=== PATIENT | female | born 1955 | race Caucasian/White ===

== ENCOUNTER → 2016-07-02 | Outpatient (CLI) | payer MEDICARE, BC ==
[~2016-07-02] MED LIST: DERMACORT1 GM EXT; DIPHENHIST25 MG PO; DITROPAN5 MG PO; EFFEXOR XR150 MG PO; FLEXERIL10 MG PO; GABAPENTIN300 MG PO; GENTLE LAXATIVE10 MG PR; HYDROCODON-ACE1 EAC5 PO; LINZESS145 MCG PO; MILK OF MAGNESIA PO; MIRALAX17 GM PO; PERCOCET 10/3251 TAB PO; SENEXON-S TABL1 EACH PO; TRAZODONE HCL100 MG PO; TYL325 PO; VENLAFAXINE HC150 M1 PO
--- NOTE | ~2016-07-02 | EKG ---
PATIENT: ANA LAURA CRUZ UNIT #: [id number] Ventricular Rate: 80 BPM Atrial Rate: 80 BPM P-R Interval: 164 ms QRS Duration: 86 ms Q-T Interval: 382 ms QTC Calculation(Bezet): 440 ms P Ottawa: 39 degrees Calculated R [place]: 20 degrees Calculated T [place]: 39 degrees Diagnosis Line: Normal sinus rhythm Diagnosis Line: Normal ECG Diagnosis Line: No previous ECGs available Diagnosis Line: Confirmed by SUSANA DIAS MD ([id number]) on 07/03/2016 Diagnosis Line: 6:18:36 PM INTERPRETING MD: ARUN DELANEY
--- NOTE | ~2016-07-02 | CR63 ---
[facility] A Service of [facility] RADIOLOGY TEXT RESULTS PATIENT: ANA LAURA CRUZ LOCATION: [facility] : 59 UNIT #: [id number] AGE: [address]: Gavin Galeano MD SEX: F ORDER DR: [id number] [facility]. [place], [place] [address] [id number] O MR#: [id number] Acc #: [id number] NAME: ANA LAURA CRUZ : 1955 SEX: F STUDY DATE/TIME: 07/02/2016 11:41 UNIT: [facility] ROOM: STUDY DESCRIPTION: CR Chest 2 View Attending Physician: Gavin Galeano M.D. Referring Physician: Gavin Galeano M.D. Ordering Physician: Gavin Galeano M.D. Primary Care Physician: Isiah Felix Jr., M.D. MEDICAL IMAGING REPORT This report is preliminary unless electronic signature is present EXAM Chest PA and lateral, 07/02/2016. COMPARISON STUDIES None HISTORY Preop clearance for right total knee arthroplasty. TECHNIQUE PA and lateral views are obtained. FINDINGS The heart size in the patient is normal. The vascular pattern is normal. Lungs show some scarring in the right base. They are otherwise clear. No pleural fluid is seen. CONCLUSION Right basilar scarring. No acute process suspected. Dictated by... David Lema M.D. THIS IS AN ELECTRONICALLY VERIFIED REPORT David Lema M.D. at 07/04/2016 4:46 PM CHEO/marcia TD: 07/02/2016 17:27 JOB #: [id number] MEDICAL IMAGING REPORT [facility] A Service of [facility] RADIOLOGY TEXT RESULTS PATIENT: ANA LAURA CRUZ LOCATION: [facility] : 59 UNIT #: [id number] AGE: [address]: Gavin Galeano MD SEX: F ORDER DR: COPY
--- NOTE | ~2016-07-02 | CO ---
Unit #: [id number] #: [id number] Patient: ANA LAURA CRUZ [id number] [address] [place], [place] [address] [id number] O MR#: [id number] NAME: ANA LAURA CRUZ ROOM: Age: 60 Sex: F Admission Date: 07/02/2016 : 1955 Attending Physician: Gavin Galeano M.D. Primary Care Physician: Isiah Felix Jr., M.D. Consultation Date: 07/02/2016 CONSULTATION REPORT REASON FOR CONSULTATION Preprocedural medical evaluation prior to revision right total knee arthroplasty scheduled by Dr. Galeano for flexion instability of the right knee. HISTORY OF PRESENT ILLNESS The patient is a 60-year-old female who presents for preprocedural screening for the reasons indicated above. She has had a prior right total knee revision and complains of pain as well as very significant crepitus and noise in the right knee joint. She has been evaluated by Dr. Galeano and scheduled for the above referenced procedure. She denies chest, arm, neck, back, jaw pressure or pain. She denies dyspnea on exertion, shortness of air, PND, orthopnea, sleep apnea. She denies a history of myocardial infarction, congestive heart failure, CVA, TIA, diabetes and kidney disease. She has no complaints other than that associated with her right knee at the time of this interview. PAST MEDICAL HISTORY 1. Osteoarthritis. 2. Obesity, BMI 36. 3. E-cigarette use. 4. History of paralyzed left vocal cord. 5. History of melanoma of right knee. 6. Overactive bladder. 7. Constipation. 8. Depression. 9. Dysphagia, status post lap band procedure. PAST SURGICAL HISTORY 1. Left vocal cord surgery. 2. Total right knee x2 with one of those surgeries revision. 3. Cholecystectomy. 4. Tonsillectomy. 5. Appendectomy for ruptured appendix. 6. Right fallopian tube excision with part of intestines and then left fallopian tube removed with complete hysterectomy. 7. Surgery on the left (1) x2. 8. The patient has had a colonoscopy. Please note - patient states that she is "hard to get under anesthesia." ALLERGIES Denies latex allergy. Medication allergies - nickel, Z-Jay (she has shortness of breath and rash) and catgut sutures. Unit #: [id number] #: [id number] Patient: ANA LAURA CRUZ CURRENT MEDICATIONS 1. Ditropan 5 mg p.o. t.i.d. 2. Flexeril 10 mg p.o. t.i.d. 3. Trazodone HCl 100 mg p.o. at bedtime. 4. Hydrocodone/acet 10/325 mg tab, one p.o. q.6 hours p.r.n. 5. Linzess 145 mcg p.o. daily before breakfast. 6. Venlafaxine HCl 150 mg p.o. daily. 7. Gabapentin 300 mg p.o. t.i.d. SOCIAL HISTORY E-cigarette use. Rarely drinks alcohol. Denies illicit drug use. FAMILY HISTORY Cancer. REVIEW OF SYSTEMS Ten point review of systems is conducted and negative except as indicated under history of present illness above. PHYSICAL EXAMINATION GENERAL: 60-year-old female awake, alert, in no acute distress. VITAL SIGNS: Temperature 97.3, heart rate 78, respiratory rate 16, blood pressure 124/74. Oxygen saturation 97% on room air. HEENT: Atraumatic, normocephalic. Sclerae anicteric. No discharge from eyes, ears or nares. LYMPHS: No preauricular, postauricular, tonsillary, submental, anterior, posterior, cervical, supra or infraclavicular adenopathy. ENDOCRINE: No thyromegaly, thyroid nodules or tenderness. RESPIRATORY: Clear to auscultation in all ceballos bilaterally without wheezes, rhonchi or rales. CARDIOVASCULAR: S1, S2. Regular rate and rhythm without murmur or rub. GI: Bowel sounds positive x4 quadrants. Soft, nontender, nondistended. EXTREMITIES: No edema, cyanosis or clubbing. Right knee joint larger than left without erythema, streaking. MUSCULOSKELETAL: Strength 5/5 in lower extremities bilaterally, flexion and extension. NEURO: Alert and oriented x3. Speech clear and appropriate. Follows commands. DIAGNOSTIC STUDIES LABORATORY: WBC 7.6, hemoglobin 12.3, hematocrit 37.5, platelet count 179, sed rate 19, sodium 139, potassium 4.0, chloride 106, CO2 26, glucose 88, BUN 14, creatinine 0.7, calcium 9.2, AST 18, ALT 18, alkaline phos. 86, bili total 0.5, total protein 6.7, albumin 4.1. UA negative with neither microscopic nor culture indicated. PT 10.3, INR 1.0. Blood type pending at this time. IMAGIN view chest x-ray report pending at this time. CARDIOVASCULAR: 12-lead EKG preliminary tracing - normal sinus rhythm, normal ECG. Confirmed tracing pending at this time. IMPRESSION Unit #: [id number] #: [id number] Patient: ANA LAURA CRUZ The patient is a 60-year-old female who presents to preprocedural screening for: 1. Preoperative medical evaluation prior to second revision right total replacement: The patient's Levin Revised Cardiac Risk Index is equal to 0.4%. This represents the patient's risk of cardiac , fatal or nonfatal myocardial infarction, cardiopulmonary arrest, arrhythmia and/or pulmonary edema. This has been discussed in detail with the patient. She wishes to proceed with surgery as scheduled at this time. 2. Obesity, body mass index 36. 3. E-cigarette use. 4. History of paralyzed left vocal cord. 5. History of melanoma of the right knee. 6. Osteoarthritis. 7. Overactive bladder. 8. Constipation. 9. Depression. 10. Status post lap band with history of dysphagia. The patient is asymptomatic today. Thank you for allowing us to participate in the care of this patient. Will gladly follow her for postop medical management pending order of Dr. Galeano. Dictated by... Franny Garcia A.P.R.N. for Marni Wagner M.D. ORIANA/césar TD: 07/03/2016 09:25 JOB #: [id number] CONSULTATION REPORT X Franny Garcia PHYSICIAN/ALLERGY/IMMUNOLOGY X CONSULTATION REPORT
[2016-07-02 12:12] LABS: HEMATOCRIT 37.5 % (35.0-45.0); HEMOGLOBIN 12.3 gm/dL (12.0-16.0); MEAN CELL VOLUME 86.1 FL (83-96); MEAN CORPUSCULAR HEMOGLOBIN 28.3 PG (28-34); MEAN CORPUSCULAR HGB CONC 32.9 g/dL (30-36); MEAN PLATELET VOLUME 7.4 FL (6.5-11.5); RED BLOOD COUNT 4.35 X10e (3.90-5.30); RED CELL DISTRIBUTION WIDTH 13.7 % (11.0-15.5); WHITE BLOOD COUNT 7.6 X10e3 (4.0-10.5)
[2016-07-02 12:17] LABS: URINE APPEARANCE CLEAR; URINE BILIRUBIN NEG (NEG); URINE BLOOD NEG (NEG); URINE COLOR DK YELLOW; URINE GLUCOSE NEG (NEG); URINE KETONE NEG (NEG); URINE LEUKOCYTE ESTERASE NEG (NEG); URINE NITRATE NEG (NEG); URINE PROTEIN NEG (NEG); URINE SPECIFIC GRAVITY 1.034 (1.003-1.035)
[2016-07-02 12:27] LABS: PROTHROMBIN TIME (PATIENT) 10.3 SECONDS (9.6-11.5)
[2016-07-02 12:34] LABS: URINE SOURCE CLEAN CATCH
[2016-07-02 12:35] LABS: CULTURE INDICATED? NO
[2016-07-02 13:10] LABS: ALBUMIN SERUM 4.1 g/dL (3.5-5.0); ALKALINE PHOSPHATASE 86 U/L (32-92); ALT (SGPT) 18 U/L (10-40); AST (SGOT) 18 U/L (10-42); BILIRUBIN,TOTAL 0.5 mg/dL (0.2-2.0); BLOOD UREA NITROGEN 14 mg/dL (9-23); CALCIUM SERUM 9.2 mg/dL (8.4-10.2); CARBON DIOXIDE 26 mmol/L (22-31); CHLORIDE 106 mmol/L (100-111); CREATININE SERUM 0.7 mg/dL (0.6-1.4); GLOM FILT RATE Estimated ABOVE60 mL/min (>60); GLUCOSE FASTING 88 mg/dL (70-110); PROTEIN TOTAL SERUM 6.7 g/dL (6.0-8.3); SODIUM 139 mmol/L (135-145)
== END | disposition home or self-care (01) ==
LOC: CAMB 09:56
PROVIDERS: Orthopaedic Surgery
DX: Z01.818 Encounter for other preprocedural examination (principal); T84.022A Instability of internal right knee prosthesis, initial encounter; J98.4 Other disorders of lung; Z85.9 Personal history of malignant neoplasm, unspecified; Z79.01 Long term (current) use of anticoagulants
CPT/HCPCS: 36415; 71020; 80053; 81003; 85027; 85610; 85652; 87070; 93005

== ENCOUNTER 2016-07-16 06:18 | Inpatient (IN) | payer MEDICARE, BC ==
--- NOTE | ~2016-07-16 | OR ---
Unit #: [id number] #: [id number] Patient: ANA LAURA CRUZ [id number] [address] [place], [place] [address] [id number] I MR#: [id number] NAME: ANA LAURA CRUZ ROOM: [facility] Date of Procedure: 07/16/2016 Admission Date: 07/16/2016 Surgeon: Gavin Galeano M.D. : 1955 Attending Physician: Gavin Galeano M.D. Primary Care Physician: Gavin Galeano M.D. OPERATIVE REPORT PREOPERATIVE DIAGNOSIS Instability of the right total knee. POSTOPERATIVE DIAGNOSIS Instability of the right total knee. PROCEDURE PERFORMED Revision of the insert of the right total knee. INDICATIONS FOR PROCEDURE The patient had a revision total knee done and still has feelings of instability and the knee swells and subsequent workup is negative and she is brought to the hospital for revision right total knee. DESCRIPTION OF PROCEDURE The patient was brought to the holding room, given appropriate IV antibiotics and after this was done, the patient was brought back to the operating room and given general anesthetic. The tourniquet was placed around the right leg. The right leg was prepped and draped. The previous skin incision was opened, subcutaneous dissected away and a medial arthrotomy was performed. There was a fair amount of clear fluid encountered. This was cultured and the patella was slid to the side. Scar tissue debrided. We then removed the polyethylene from the previous components which is a 12 mm thick insert (1) Dequan CCK femoral component with a 71 mm tibial component. The patient then had the femur and tibia were inspected and they were not loose. Again, we tired with the new CCK inserts, first with a 14 and then with 16. We found that the 16 still allowed full extension and had excellent stability in both extension and flexion. So, a 16 mm constrained insert for the CCK femoral component was inserted into the 71 mm tibia. The patient had the knee irrigated out. The tourniquet was released. Hemostasis was obtained. The periarticular injection was used. The wound was then irrigated with Betadine and bacitracin and then closed using 0 Ethibond in the arthrotomy, 0 and 2-0 Vicryl in the subcutaneous, and then we used the Prineo closure in the skin because of her allergy to nickel and tape. grooming assistant, Nathaniel Dorado and Yuliya Root were present throughout the entire case. Blood loss about 100 to 150 mL. Dictated by... Gavin Galeano M.D. Unit #: [id number] #: [id number] Patient: ANA LAURA CRUZ JAK/olivia TD: 07/17/2016 07:51 JOB #: [id number] OPERATIVE REPORT X Gavin Galeano MD PROCEDURE OPERATIVE NOTE
--- NOTE | ~2016-07-16 | DS ---
Unit #: [id number] #: [id number] Patient: ANA LAURA CRUZ [id number] [address] [place], [place] [address] [id number] I MR#: [id number] NAME: ANA LAURA CRUZ ROOM: 451 Age: 60 Sex: F Admission Date: 07/16/2016 : 1955 Discharge Date: 07/18/2016 Attending Physician: Gavin Galeano M.D. Primary Care Physician: Gavin Galeano M.D. DISCHARGE SUMMARY ADMITTING DIAGNOSIS Instability, right total knee. DISCHARGE DIAGNOSIS Instability, right total knee. PROCEDURE IN HOSPITAL Revision of polyethylene insert, right knee. HOSPITAL COURSE The patient was admitted on July 16, taken to the operating room where she underwent the above procedure. Postoperatively, she has done well. She has been up ambulating. She is independent with her walker. It is felt she can be discharged to [facility] for further rehab and strengthening. Her INR today is 1.6. She will be discharged on 7.5 mg of Coumadin daily and then we will see her back in the office in five weeks. Her neurovascular exam is intact. Her incisions are healing appropriately. DISCHARGE MEDICATIONS Her medications on discharge include her routine home medicines plus Percocet and her Coumadin. Dictated by... Miya Mcfarland/abelardo TD: 07/18/2016 12:23 JOB #: [id number] DISCHARGE SUMMARY X Gavin Galeano MD X DISCHARGE SUMMARY
[~2016-07-16 06:18] MED LIST changes: -DERMACORT1 GM EXT; -DIPHENHIST25 MG PO; -EFFEXOR XR150 MG PO; -GENTLE LAXATIVE10 MG PR; -MILK OF MAGNESIA PO; -MIRALAX17 GM PO; -PERCOCET 10/3251 TAB PO; -SENEXON-S TABL1 EACH PO; -TYL325 PO
[2016-07-16 07:32] LABS: PROTHROMBIN TIME (PATIENT) 10.6 SECONDS (9.6-11.5)
[2016-07-17 04:11] LABS: HEMATOCRIT 34.3 % (35.0-45.0)
[2016-07-17 04:23] LABS: INR 1.3; PROTHROMBIN TIME (PATIENT) 13.3 SECONDS (9.6-11.5)
[2016-07-17 04:35] LABS: BLOOD UREA NITROGEN 12 mg/dL (9-23); CARBON DIOXIDE 26 mmol/L (22-31); CHLORIDE 107 mmol/L (100-111); CREATININE SERUM 0.8 mg/dL (0.6-1.4); GLOM FILT RATE Estimated ABOVE60 mL/min (>60); GLUCOSE FASTING 140 mg/dL (70-110); MAGNESIUM 2.2 mg/dL (1.6-3.0); POTASSIUM 4.5 mmol/L (3.5-5.1); SODIUM 141 mmol/L (135-145)
[2016-07-18 03:07] LABS: HEMATOCRIT 35.6 % (35.0-45.0); HEMOGLOBIN 11.2 gm/dL (12.0-16.0); MEAN CELL VOLUME 88.3 FL (83-96); MEAN CORPUSCULAR HEMOGLOBIN 27.7 PG (28-34); MEAN CORPUSCULAR HGB CONC 31.4 g/dL (30-36); RED BLOOD COUNT 4.03 X10e (3.90-5.30); RED CELL DISTRIBUTION WIDTH 13.6 % (11.0-15.5); WHITE BLOOD COUNT 12.2 X10e3 (4.0-10.5)
[2016-07-18 03:20] LABS: INR 1.6; PROTHROMBIN TIME (PATIENT) 16.7 SECONDS (9.6-11.5)
[2016-07-18 03:33] LABS: BLOOD UREA NITROGEN 16 mg/dL (9-23); BUN/CREATININE RATIO 22.85; CALCIUM SERUM 8.9 mg/dL (8.4-10.2); CARBON DIOXIDE 28 mmol/L (22-31); CHLORIDE 102 mmol/L (100-111); CREATININE SERUM 0.7 mg/dL (0.6-1.4); GLOM FILT RATE Estimated ABOVE60 mL/min (>60); GLUCOSE FASTING 108 mg/dL (70-110); MAGNESIUM 2.4 mg/dL (1.6-3.0); POTASSIUM 4.4 mmol/L (3.5-5.1); SODIUM 137 mmol/L (135-145)
== END 2016-07-18 14:37 | DRG 489 ==
LOC: CSUR 06:18 → CPACUOF 07:45 → C4B 15:30
PROVIDERS: Nurse Practitioner; Orthopaedic Surgery
PROC: 0SUV09Z Supplement Right Knee Joint, Tibial Surface with Liner, Open Approach (ICD-10-PCS; 2016-07-16)
PROC: 0SPC09Z Removal of Liner from Right Knee Joint, Open Approach (ICD-10-PCS; principal; 2016-07-16 08:00)
DX: T84.022A Instability of internal right knee prosthesis, initial encounter (principal); J38.01 Paralysis of vocal cords and larynx, unilateral; F32.9 Major depressive disorder, single episode, unspecified; E66.9 Obesity, unspecified; Z68.38 Body mass index [BMI] 38.0-38.9, adult; Z90.49 Acquired absence of other specified parts of digestive tract; K21.9 Gastro-esophageal reflux disease without esophagitis; Z98.84 Bariatric surgery status; F17.290 Nicotine dependence, other tobacco product, uncomplicated; Z85.820 Personal history of malignant melanoma of skin; K59.00 Constipation, unspecified; R50.82 Postprocedural fever; D64.9 Anemia, unspecified; R73.9 Hyperglycemia, unspecified
CPT/HCPCS: 80048; 83735; 85014; 85018; 85027; 85610; 86850; 86900; 86901; 87070; 87075; 87205; 94760; 97110; 97116; 97162; 97530; C1776; G8978-GP; G8979-GP; G8980-GP; J0131; J0171; J0690; J0735; J1100; J1170; J1650; J1885; J2250; J2370; J2405; J2795; J3010

== ENCOUNTER 2016-07-26 19:27 | Inpatient (IN) | payer MEDICARE, BC ==
--- NOTE | ~2016-07-26 | US85 ---
[facility] A Service of [facility] RADIOLOGY TEXT RESULTS PATIENT: ANA LAURA CRUZ LOCATION: [facility] 469-01 : 59 UNIT #: [id number] AGE: [address]: Kathrine Grover MD SEX: F ORDER DR: [id number] [facility] [address] [facility]. [place], [place] [address] [id number] I MR#: [id number] Acc #: [id number] NAME: ANA LAURA CRUZ : 1955 SEX: F STUDY DATE/TIME: 07/30/2016 10:50 UNIT: [facility] ROOM: [facility] STUDY DESCRIPTION: LE Veins Unilat or Ltd Stdy Attending Physician: Kathrine Grover M.D. Referring Physician: Self Referral-Refer Use Only Ordering Physician: Kathrine Grover M.D. Primary Care Physician: Isiah Felix Jr., M.D. MEDICAL IMAGING REPORT This report is preliminary unless electronic signature is present EXAM Right lower extremity venous duplex scan HISTORY Right leg swelling. Previous right knee replacement. FINDINGS High resolution B-mode imaging and color flow Doppler analysis was performed of the deep and superficial veins of the right lower extremity. All veins are fully compressible with no intraluminal thrombus. Spontaneous and phasic flow is noted in the right common femoral, deep femoral, femoral and popliteal veins. Flow is demonstrated in the right anterior tibial, posterior tibial and peroneal veins. Flow in almost present in the right great saphenous vein. IMPRESSION Normal venous examination of the right lower extremity. No deep or superficial vein thrombosis in the right leg. Dictated by... Travis Santos M.D. THIS IS AN ELECTRONICALLY VERIFIED REPORT Travis Santos M.D. at 07/31/2016 7:28 AM Ruby TD: 07/30/2016 13:03 JOB #: [id number] MEDICAL IMAGING REPORT [facility] A Service [facility] RADIOLOGY TEXT RESULTS PATIENT: ANA LAURA CRUZ LOCATION: [facility] 469-01 : [birth year] UNIT #: [id number] AGE: [address]: Kathrine Grover MD SEX: F ORDER DR: Page 1 of 1 COPY
--- NOTE | ~2016-07-26 | CR72 ---
[facility] A Service of [facility] RADIOLOGY TEXT RESULTS PATIENT: ANA LAURA CRUZ LOCATION: [facility] 46- : 59 UNIT #: [id number] AGE: [address]: Kathrine Grover MD SEX: F ORDER DR: [id number] [facility] [address] [facility]. [place], [place] [address] [id number] I MR#: [id number] Acc #: [id number] NAME: ANA LAURA CRUZ : 1955 SEX: F STUDY DATE/TIME: 07/26/2016 21:38 UNIT: [facility] ROOM: [facility] STUDY DESCRIPTION: CR Chest Single View Portable Attending Physician: Kathrine Grover M.D. Referring Physician: Phy Self Referred Ordering Physician: Natty Harris M.D. Primary Care Physician: Isiah Felix Jr., M.D. MEDICAL IMAGING REPORT This report is preliminary unless electronic signature is present EXAM Portable chest HISTORY Fever, cough, hypoxia and congestion x1 week. COMPARISON 07/26/2016 FINDINGS A single AP portable view of the chest shows both lungs to be clear. The heart is normal in size. The mediastinal contour is normal. No significant bone abnormalities are seen. IMPRESSION Normal portable chest. Dictated by... Taryn Arredondo M.D. THIS IS AN ELECTRONICALLY VERIFIED REPORT Taryn Arredondo M.D. at 07/27/2016 10:53 PM VINCENT/arpan TD: 07/27/2016 12:56 JOB #: [id number] MEDICAL IMAGING REPORT Page 1 of 1 COPY
--- NOTE | ~2016-07-26 | XA166 ---
[facility] A Service of [facility] RADIOLOGY TEXT RESULTS PATIENT: ANA LAURA CRUZ LOCATION: [facility] 469-01 : [birth year] UNIT #: [id number] AGE: [address]: Kathrine Grover MD SEX: F ORDER DR: [id number] [facility]. [place], [place] [address] [id number] I MR#: [id number] Acc #: [id number] NAME: ANA LAURA CRUZ : 1955 SEX: F STUDY DATE/TIME: 07/29/2016 9:24 UNIT: [facility] ROOM: [facility] STUDY DESCRIPTION: XA PICC Line Placement WO Port Attending Physician: Kathrine Grover M.D. Referring Physician: Lawrencey Self Referred Ordering Physician: Gavin Galeano M.D. Primary Care Physician: Isiah Felix Jr., M.D. MEDICAL IMAGING REPORT This report is preliminary unless electronic signature is present EXAM PICC line insertion INDICATION 60-year-old female needs IV access for antibiotics. PRE-PROCEDURE The procedure was explained to the patient and/or patient outside sales account representative including risks, benefits, potential complications and potential for alternative forms of treatment. Informed consent was obtained, and prior to initiating the procedure a formal timeout procedure was performed. PROCEDURE Using full standard sterile barrier technique, including caps, gowns, gloves, masks, as well as sterile skin preparation and standard sterile draping, the right arm was prepped and draped in the usual fashion, and real-time sterile ultrasound guidance was used to localize a right arm basilic vein and to confirm vessel patency. A hard copy ultrasound image was recorded. After local anesthesia with 1% Xylocaine, the vein was punctured using real-time sterile ultrasound guidance, and an 0.018 guidewire was advanced into the superior vena cava, using fluoroscopic guidance. A 4 Czech 43 cm single-lumen PICC was then measured and deployed with the tip positioned in the superior vena cava. The position of the line was documented with a radiographic image. The line was secured in place with an adhesive dressing and an antibiotic patch was applied. Total fluoro time was 0.2 minutes. Reference air kerma 3 mGy. IMPRESSION Successful right arm PICC line placement. [facility] A Service of [facility] RADIOLOGY TEXT RESULTS PATIENT: ANA LAURA CRUZ LOCATION: [facility] 469-01 : [birth year] UNIT #: [id number] AGE: [address]: Kathrine Grover MD SEX: F ORDER DR: Dictated by... Mohan Arredondo M.D. THIS IS AN ELECTRONICALLY VERIFIED REPORT Mohan Arredondo M.D. at 07/30/2016 4:31 PM ARS/rnr TD: 07/29/2016 20:04 JOB #: [id number] MEDICAL IMAGING REPORT Page 1 of 1 COPY
--- NOTE | ~2016-07-26 | DS ---
Unit #: [id number] #: [id number] Patient: ANA LAURA CHAN [id number] [address] [place], [place] [address] [id number] MR#: [id number] NAME: ANA LAURA CHAN ROOM: 46 Age: 60 Sex: F Admission Date: 07/26/2016 : 1955 Discharge Date: 07/30/2016 Attending Physician: Kathrine Grover M.D. Primary Care Physician: Isiah Felix Jr., M.D. DISCHARGE SUMMARY JOB NOTE: DICTATED FOR NOT DICTATED. ADMITTING DIAGNOSIS Right total knee infection. DISCHARGE DIAGNOSIS Right total knee infection. HOSPITAL COURSE On 07/26/2016, Ms. Chan was admitted with a right total knee infection. She underwent a right total knee incision and drainage with poly exchange on 07/28/2016. She tolerated the procedure well. She was transported to the 4th floor, where she underwent physical therapy, antibiotic therapy, and PICC line placement. She is doing well and is ready to be discharged. DISPOSITION Stable at discharge. Discharged to SNU rehab on the 3rd floor. DISCHARGE MEDICATIONS Include her routine home medications in addition to IV Kefzol and rifampin, Coumadin 7.5 mg p.o. daily and her pain medicine. FOLLOWUP INSTRUCTIONS Ms. Chan is going to be discharged to the SNU. The patient is on Coumadin for DVT prophylaxis. The PT and INR are to be drawn every Thursday and . The patient is on IV antibiotics for 6 weeks per Infectious Disease for right total knee infection. Followup appointment with Dr. Galeano is in 6 weeks. Please call our office for that appointment date and time. Skin sutures are to be removed 2 weeks postoperatively. The patient should resume physical therapy for ambulation and active range of motion. The patient's weightbearing as tolerated. Any questions, please call our office at [phone]. Dictated by... Gwyn Antonio for Gavin Galeano M.D. PHAM/olivia TD: 07/31/2016 01:50 JOB #: [id number] Unit #: [id number] #: [id number] Patient: ANA LAURA CHAN DISCHARGE SUMMARY Page 1 of 1 X Nicol Saldivar X DISCHARGE SUMMARY
--- NOTE | ~2016-07-26 | OR ---
Unit #: [id number] #: [id number] Patient: ANA LAURA CRUZ [id number] [address] [place], [place] [address] [id number] I MR#: [id number] NAME: ANA LAURA CRUZ ROOM: 469 Date of Procedure: 07/27/2016 Admission Date: 07/26/2016 Surgeon: Gavin Galeano M.D. : 1955 Attending Physician: Kathrine Grover M.D. Referring Physician: Self Referral-Refer Use Only Primary Care Physician: Isiah Felix Jr., M.D. OPERATIVE REPORT PREOPERATIVE DIAGNOSIS Infected right total knee. POSTOPERATIVE DIAGNOSIS Infected right total knee. PROCEDURES PERFORMED Arthrotomy with debridement of knee, poly exchange, and irrigation and closure over drain. DESCRIPTION OF PROCEDURE The patient was brought to the operating room, given a general anesthetic. She was already on scheduled IV antibiotics. Tourniquet was placed around the right thigh and the right leg was prepped and draped in a sterile fashion. Tourniquet was inflated to 300. The previous skin incision was opened and there was some purulent material present. This was cultured. We then used a Vasquez Elevator to debride the soft tissues in the prepatellar area. There appeared to be purulent or infected tissue was removed. We then opened the arthrotomy. There was evidence of infection deep in the knee as well. We then debrided the scar tissue in the medial and lateral gutters and suprapatellar pouch. We cleaned out the interface between the prosthesis and bone as completely as possible with a small rongeur. The previous poly was removed, which is a 60 mm thick constrained poly for the 71 Dequan tray. The knee was then scrubbed with a Betadine-impregnated brush, both the tibia and the femur. Any further necrotic tissue or apparent grossly infected tissue was debrided. The knee was irrigated with 3000 mL of antibiotic irrigation with bacitracin and then it was soaked with Betadine solution, irrigated once again and then the new poly was positioned and locked into place with the locking bar. The tourniquet was released. Hemostasis was obtained. A large Hemovac drain was positioned and then the wound was closed using 0 Vicryl in the arthrotomy, 0 and 2-0 Vicryl in the subcutaneous, and nylon in the skin. Sterile dressing was applied and the patient's general anesthetic was reversed. ESTIMATED BLOOD LOSS About 200 mL. Dictated by... Miya Mcfarland/olivia Unit #: [id number] #: [id number] Patient: ANA LAURA CRUZ TD: 07/28/2016 22:48 JOB #: [id number] OPERATIVE REPORT Page 1 of 1 X Gavin Galeano MD X PROCEDURE OPERATIVE NOTE
--- NOTE | ~2016-07-26 | CO ---
Unit #: [id number] #: [id number] Patient: ANA LAURA CRUZ [id number] [address] [place], [place] [address] [id number] Juanita MR#: [id number] NAME: ANA LAURA CRUZ ROOM: 469 Age: 60 Sex: F Admission Date: 07/27/2016 : 1955 Attending Physician: Kathrine Grover M.D. Primary Care Physician: Isiah Felix Jr., M.D. Consultation Date: 07/27/2016 CONSULTATION REPORT REASON FOR CONSULTATION Antibiotic management for right knee infection. HISTORY OF PRESENT ILLNESS The patient is a 60-year-old female, who is status post right knee arthroplasty, it looks like the first one was in 2006, which was because of osteoarthritis, which was a replacement in 2015. She said that she was allergic to nickel and that is why it was replaced and then on 07/16/2016 she underwent revision because of instability. On the 07/18/2016, she was taken back and had a liner that was exchanged because of instability. Cultures at that time were negative. Now, she is admitted with 1-week history of jaylyn pus, swelling, pain. No fevers, chills, cough, congestion, nausea, vomiting, diarrhea. No trauma. No injury to the knee. Now, she is on scheduled for I and D tomorrow morning. She is on Rocephin. Infectious Disease consultation requested for further evaluation and antibiotic management. PAST MEDICAL HISTORY 1. Osteoarthritis. 2. Morbid obesity. 3. Paralyzed left vocal cord. 4. Melanoma of the right knee. 5. Overactive bladder. 6. Constipation. 7. Depression. 8. Left vocal cord surgery as noted above. 9. Right knee surgery as noted above. 10. Cholecystectomy. 11. Tonsillectomy. 12. Appendectomy. 13. Right fallopian tube excision. SOCIAL HISTORY Noncontributory. FAMILY HISTORY Noncontributory. ALLERGIES Latex, nickel, Z-Jay, and catgut sutures. CURRENT MEDICATIONS List reviewed. Antibiotics include Rocephin. Unit #: [id number] #: [id number] Patient: ANA LAURA CRUZ PHYSICAL EXAMINATION GENERAL: Lying in bed comfortable, does not seem to be in any distress. VITAL SIGNS: Temperature 100, T-max 103.2, pulse 115, respirations 20, blood pressure 131/99. HEENT: Unremarkable. NECK: Supple. CHEST: Clear to auscultation. HEART: Normal S1, S2. ABDOMEN: Soft, nontender. EXTREMITIES: Show right knee incision with jaylyn pus, sutures in place, significant erythema and swelling around the knee, and there is diffuse swelling on the leg up to the ankle. DIAGNOSTIC STUDIES LABORATORY RESULTS: BUN 16, creatinine 1.4. Lactic acid 1.8. CRP 1.3. WBC 24.2, hemoglobin 10.5, platelets 181. ESR 26. Influenza screen negative. Urinalysis had some pyuria. Cultures are pending. ASSESSMENT 1. Early postoperative right total knee replacement infection. 2. Ruled out right lower extremity deep vein thrombosis. PLAN At this time, I would cover her with cefepime and vancomycin for early postoperative infection which should include coverage for gram negatives. We will go ahead and start cefepime 2 g IV q.12 hours and vancomycin and pharmacy to follow. We will go ahead and get a right lower extremity Dopplers to rule out deep vein thrombosis. Follow up on cultures including OR cultures and OR findings. Further recommendation depending upon the course. I would like to thank, Dr. Grover, for asking us to participate in the care of this patient. We will follow this patient along with you. Dictated by... Miya Sandoval/olivia TD: 07/28/2016 02:14 JOB #: [id number] CONSULTATION REPORT Page 1 of 1 X Robel Escalante MD CONSULTATION REPORT
--- NOTE | ~2016-07-26 | US84 ---
[id number] [facility] [address] [place], [place] [address] [id number] I MR#: [id number] Acc #: [id number] NAME: ANA LAURA CRUZ : 1955 SEX: F STUDY DATE/TIME: 07/27/2016 11:55 UNIT: C4 ROOM: 469 STUDY DESCRIPTION: US LE Veins Complete Leonel Stdy Attending Physician: Kathrine Grover M.D. Referring Physician: Self Referral-Refer Use Only Ordering Physician: Robel Escalante M.D. Primary Care Physician: Isiah Felix Jr., M.D. MEDICAL IMAGING REPORT This report is preliminary unless electronic signature is present EXAM Bilateral lower extremity duplex Doppler venous ultrasound, 07/27/2016 COMPARISON None. INDICATION 60-year-old female with right lower extremity swelling since knee surgery 1 week ago. Patient reports left leg swelling for 3 days. FINDINGS RIGHT LOWER EXTREMITY: There is color flow in the anterior tibial vein. The right common femoral, greater saphenous, superficial femoral, proximal deep femoral, popliteal, peroneal and posterior tibial veins are fully compressible with normal internal color-flow and waveform. There is diffuse subcutaneous edema below the right knee. LEFT LEG: There is color flow in the left anterior tibial vein. The left posterior tibial, peroneal, popliteal, superficial femoral, proximal deep femoral, greater saphenous and common femoral veins are fully compressible with internal color flow and expected waveform. IMPRESSION 1. Negative for venous thrombosis in either lower extremity. 2. Asymmetric edema in the right leg as compared to the left, seen below the knee. Dictated by... Stalin Correa M.D. THIS IS AN ELECTRONICALLY VERIFIED REPORT Stalin Correa M.D. at 07/29/2016 10:46 AM JUDITH/venkatesh TD: 07/28/2016 00:16 JOB #: [id number] MEDICAL IMAGING REPORT Page 1 of 1 COPY
--- NOTE | ~2016-07-26 | HP ---
Unit #: [id number] #: [id number] Patient: ANA LAURA CRUZ [id number] [facility] [address] [place], [place] [address] [id number] I MR#: [id number] NAME: ANA LAURA CRUZ ROOM: 469 Age: 60 Sex: F Admission Date: 07/27/2016 : 1955 Attending Physician: Kathrine Grover M.D. Referring Physician: Self Referral-Refer Use Only Primary Care Physician: Isiah Felix Jr., M.D. HISTORY AND PHYSICAL CHIEF COMPLAINT Fever. DISCUSSION This is a 60-year-old female with a past medical history of osteoarthritis, obesity, electronic cigarette use, history of paralyzed left vocal cord, overactive bladder, constipation, depression. He has a history of right total knee revision and she was recently admitted here at [facility] on July 18 and discharged on July 24 to [facility]. She underwent here revision of right total knee arthroplasty and [facility], and she developed a fever of 104, and she was sent to the emergency room for evaluation and workup. On workup, she was found to have urinary tract infection and eventually being admitted. She denies shortness of breath. She had been having fever. She denies orthopnea and she denies chest pain. PAST MEDICAL HISTORY 1. History of osteoarthritis. 2. History of obesity, BMI 36. 3. History of paralyzed left vocal cord. 4. History of melanoma right knee. 5. Electronic cigarette use. 6. Constipation. 7. Depression. 8. Overactive bladder. 9. History of dysphagia. 10. Status post lap band procedure. PAST SURGICAL HISTORY 1. Left vocal cord surgery. 2. Total right knee revision x3 with two revisions. 3. Cholecystectomy. 4. Tonsillectomy. 5. Appendectomy for ruptured appendix. 6. History of right polyp and tube excision with part of intestine and left polyp and tube removal with complete cholecystectomy. 7. History of colonoscopy. ALLERGIES Allergic to donavon. SOCIAL HISTORY She uses electronic cigarette. She rarely drinks alcohol. She denies illicit drug use. Unit #: [id number] #: [id number] Patient: ANA LAURA CRUZ FAMILY HISTORY Cancer in the family. REVIEW OF SYSTEMS Twelve review of systems is conducted and negative except for history of present illness. MEDICATIONS [facility] the [facility]. Flexeril 10 mg three times daily 2. Linzess 145 mcg daily 3. Gabapentin 300 mg three times daily 4. Hydrocortisone cream q.6h p.r.n. 5. Ditropan 5 mg three times daily 6. MiraLAX 17 grams daily 7. Milk of magnesia 30 mL p.o. daily 8. Tylenol 325 q.6h p.r.n. 9. Effexor 150 mg daily 10. Trazodone 100 mg daily 11. Percocet 10/325 one tablet q.6h p.r.n. 12. Diphenhydramine 25 mg q.6h p.r.n. PHYSICAL EXAMINATION GENERAL: Middle-aged female lying in the bed comfortably, currently not in any distress. She is alert, awake, and oriented x3, comfortable, not in any distress. VITAL SIGNS: Current temperature is 103.2, heart rate 124, respiratory rate 20, and blood pressure 139/82. Oxygen 91% on room air. HEENT EXAMINATION: Head: Normocephalic and atraumatic, sclerae is anicteric. NECK: No lymphadenopathy. LUNGS: Clear to auscultation bilaterally. No rhonchi. No wheezing. HEART: S1 and S2, regular rate and rhythm. Tachycardia. ABDOMEN: Soft, nontender, and nondistended. Bowel sounds are positive. EXTREMITIES: Right leg is trace edema, on the right knee at the incision site, lower part is okay, on the top of the incision there is a mild oozing of the fluid. MUSCULOSKELETAL: Strength is 5/5 in both lower extremities. NEUROLOGIC: She is alert, oriented x3, speech clear. No focal neurologic deficit. DIAGNOSTIC STUDIES LABORATORY: Laboratory workup is the following, today, INR is 1.7, troponin less than 0.05, flu negative. Chemistries, sodium 136, potassium 3.5, chloride 105, glucose 113, BUN 10, creatinine 0.7. Lactic acid 1.8. CBC, white count 12, hemoglobin 11, hematocrit 36, platelets 168. ESR 26, CRP 1.3. Urinalysis has cloudy appearance, positive LE, WBCs 10/25. IMAGING: Chest x-ray shows no infiltrate. ASSESSMENT/PLAN 1. Fever. 2. Urinary tract infection. 3. Revision of right total knee arthroplasty, there is some fluctuation on the exam and some discharge. I will ask Dr. Galeano to reevaluate for possible infection. 4. Obesity. Unit #: [id number] #: [id number] Patient: ANA LAURA CRUZ 5. Osteoarthritis. 6. Overactive bladder. 7. Depression. 8. Constipation. 9. DVT prophylaxis, will place the patient on Lovenox. Dictated by Miya Castillo/kalee TD: 07/27/2016 14:44 JOB #: [id number] HISTORY AND PHYSICAL Page 1 of 1 X X HISTORY AND PHYSICAL
--- NOTE | ~2016-07-26 | CO ---
Unit #: [id number] #: [id number] Patient: ANA LAURA CHAN [id number] [facility]. [place], [place] [address] [id number] MR#: [id number] NAME: ANA LAURA CHAN ROOM: 469 Age: 60 Sex: F Admission Date: 07/27/2016 : 1955 Attending Physician: Kathrine Grover M.D. Primary Care Physician: Isiah Felix Jr., M.D. Consultation Date: 07/27/2016 CONSULTATION REPORT CHIEF COMPLAINT Fever of 104.5 and postoperative right knee wound drainage. HISTORY OF PRESENT ILLNESS Ms. Chan is a 60-year-old female, patient of my partner, Dr. Gavin Galeano, who recently underwent a right total knee revision at [facility] on 07/16/2016 for a right total knee revision with placement of a polyethylene exchange for instability. She was doing well. Postoperatively, she was transferred to [facility] on the 3rd floor, but began having high fever and right knee wound drainage. She was sent to the emergency room for further workup and treatment and was found to have high fever, urinary tract infection, as well as a postoperative wound drainage and was admitted back to [facility] and Orthopedics was reconsulted. PAST MEDICAL HISTORY Significant for cancer, thyroid disease, gastrointestinal disease. PAST SURGICAL HISTORY Includes left vocal cord, right total knee performed by Dr. Christie, first total knee revision performed by Dr. Middleton at [facility] and most recently total knee revision performed by Dr. Galeano on 07/16/2016, history of cholecystectomy, tonsillectomy, appendectomy, right fallopian tube resection, left fallopian tube removal, complete hysterectomy. HOME MEDICATIONS Include Ditropan, Flexeril, trazodone, hydrocodone, TENS, venlafaxine, gabapentin. ALLERGIES To nickel. SOCIAL HISTORY Tobacco, 1/2 pack a day. Alcohol, does admit to alcohol use. PHYSICAL EXAMINATION VITAL SIGNS: Temperature in the emergency room is 103.2 with maximum temp of 104.5 with rehab yesterday, pulse is 134, heart rate 20, blood pressure 139/82, saturation 91% on room air. HEENT: Normocephalic, atraumatic. Extraocular movements intact. NECK: Trachea is midline. HEART: Tachycardic, but regular. ABDOMEN: Soft, nontender, nondistended. Obese. Unit #: [id number] #: [id number] Patient: ANA LAURA CHAN SKIN: Demonstrates rash of the right knee, which is diffuse. MUSCULOSKELETAL: Demonstrates right knee midline incision, which is draining tannish grayish to purulent drainage in the subcutaneous space, which is moderate in amount. Has soaked upper half of ABD. She is neurovascular intact distally. Negative Homans. Moderate swelling is present. Wiggles toes distally. DIAGNOSTIC STUDIES LABORATORY RESULTS: Urinalysis demonstrates 2+ leukocyte esterase with 2+ urine bacteria. Cultures are pending. Sedimentation rate is 26. C-reactive protein is 1.3. INR obtained yesterday was 1.7. IMPRESSION Right postoperative knee infection, status post total knee revision. PLAN Since she has already had breakfast this morning, we will go ahead and allow her to eat today and make her n.p.o. after midnight. Plan will be for incision and drainage and polyethylene exchange tomorrow by Dr. Galeano. We will go ahead and get some cultures of the right knee. IV antibiotics had already been started. Risks and benefits were discussed in detail. Risk of failure to eradicate infection, medical transfers, DVT and PE, need for additional surgery, and . She voiced understanding and wished to proceed as discussed. Dr. Galeano will evaluate in the morning for further recommendations. Dictated by... Joel Love M.D. JACINTO/olivia TD: 07/27/2016 23:40 JOB #: [id number] CONSULTATION REPORT Page 1 of 1 X Joel Love MD X CONSULTATION REPORT
[2016-07-26 20:28] LABS: BASOPHIL# 0.1 X10e3 (0-0.3); BASOPHIL% 0.5 % (0-2.5); EOSINOPHIL# 0.2 X10e3 (0-0.7); EOSINOPHIL% 1.7 % (0.0-7.0); HEMATOCRIT 36.1 % (35.0-45.0); HEMOGLOBIN 11.7 gm/dL (12.0-16.0); LYMPHOCYTE# 0.7 X10e3 (1.0-3.5); LYMPHOCYTE% 5.6 % (17.0-45.0); MEAN CELL VOLUME 87.3 FL (83-96); MEAN CORPUSCULAR HEMOGLOBIN 28.2 PG (28-34); MEAN CORPUSCULAR HGB CONC 32.4 g/dL (30-36); MEAN PLATELET VOLUME 7.3 FL (6.5-11.5); MONOCYTE# 0.9 X10e3 (0-1.0); MONOCYTE% 6.7 % (3.0-12.0); NEUTROPHIL# 10.9 X10e3 (1.5-7.1); NEUTROPHIL% 85.5 % (40-75); PLATELET COUNT 168 X10e3 (140-420); RED BLOOD COUNT 4.13 X10e (3.90-5.30); WHITE BLOOD COUNT 12.8 X10e3 (4.0-10.5)
[2016-07-26 20:30] LABS: DIFF IND NO
[2016-07-26 20:52] LABS: BUN/CREATININE RATIO 14.28; CALCIUM SERUM 8.5 mg/dL (8.4-10.2); CREATININE SERUM 0.7 mg/dL (0.6-1.4); GLOM FILT RATE Estimated 95.5 mL/min (>60); POTASSIUM 3.5 mmol/L (3.5-5.1)
[2016-07-26 21:26] LABS: INFLUENZA A NEG (NEG); INFLUENZA B NEG (NEG)
[2016-07-26 21:46] LABS: POC - CKMB <1.0 ng/mL (0.0-7.9); POC - TROPONIN <0.05 ng/mL (<=0.05)
[2016-07-26 21:53] LABS: POC - CKMB <1.0 ng/mL (0.0-7.9); POC - TROPONIN <0.05 ng/mL (<=0.05)
[2016-07-26 22:09] LABS: INR 1.7; PROTHROMBIN TIME (PATIENT) 18.7 SECONDS (9.6-11.5)
[2016-07-26] MEDS ORDERED: DERMACORT1 GM EXT (22:46)
[2016-07-26] MEDS ORDERED: DITROPAN5 MG PO (22:47)
[2016-07-26] MEDS ORDERED: EFFEXOR XR150 MG PO (22:47)
[2016-07-26] MEDS ORDERED: SENEXON-S TABL1 EACH PO (22:48)
[2016-07-26] MEDS ORDERED: TRAZODONE HCL100 MG PO (22:49)
[2016-07-26] MEDS ORDERED: PERCOCET 10/3251 TAB PO (22:49)
[2016-07-26] MEDS ORDERED: DIPHENHIST25 MG PO (22:50)
[2016-07-26] MEDS ORDERED: MIRALAX17 GM PO (22:51)
[2016-07-26] MEDS ORDERED: MILK OF MAGNESIA PO (22:52)
[2016-07-26] MEDS ORDERED: GENTLE LAXATIVE10 MG PR (22:53)
[2016-07-26] MEDS ORDERED: TYL325 PO (22:53)
[2016-07-27 05:43] LABS: URINE SOURCE CLEAN CATCH
[2016-07-27 05:54] LABS: BASOPHIL% 0.2 % (0-2.5); EOSINOPHIL# 0.1 X10e3 (0-0.7); EOSINOPHIL% 0.5 % (0.0-7.0); HEMOGLOBIN 10.5 gm/dL (12.0-16.0); LYMPHOCYTE# 1.2 X10e3 (1.0-3.5); LYMPHOCYTE% 4.9 % (17.0-45.0); MEAN CELL VOLUME 88.7 FL (83-96); MEAN CORPUSCULAR HEMOGLOBIN 28.3 PG (28-34); MEAN CORPUSCULAR HGB CONC 31.9 g/dL (30-36); MEAN PLATELET VOLUME 7.4 FL (6.5-11.5); MONOCYTE# 1.5 X10e3 (0-1.0); MONOCYTE% 6.3 % (3.0-12.0); NEUTROPHIL# 21.3 X10e3 (1.5-7.1); NEUTROPHIL% 88.1 % (40-75); PLATELET COUNT 181 X10e3 (140-420); RED BLOOD COUNT 3.72 X10e (3.90-5.30); RED CELL DISTRIBUTION WIDTH 13.4 % (11.0-15.5)
[2016-07-27 05:56] LABS: DIFF IND YES; WHITE BLOOD COUNT 24.2 X10e3 (4.0-10.5)
[2016-07-27 06:05] LABS: URINE APPEARANCE CLOUDY; URINE BILIRUBIN NEG (NEG); URINE BLOOD NEG (NEG); URINE COLOR YELLOW; URINE GLUCOSE NEG (NEG); URINE KETONE TRACE (NEG); URINE LEUKOCYTE ESTERASE 2+ (NEG); URINE NITRATE NEG (NEG); URINE PH 5.5 (5-8); URINE PROTEIN NEG (NEG); URINE UROBILINOGEN 0.2 MG/DL (NEG)
[2016-07-27 06:08] LABS: CULTURE INDICATED? YES; URINE BACTERIA AUWI 2+ (NEGATIVE); URINE SQUAMOUS EPITHELIAL CELL FEW /[HPF]
[2016-07-27 06:21] LABS: URBCS1 AUWI NEG /[HPF] (0-2); URINE MUCUS PRESENT
[2016-07-27 06:25] LABS: BUN/CREATININE RATIO 11.42; CREATININE SERUM 1.4 mg/dL (0.6-1.4); GLOM FILT RATE Estimated 41.3 mL/min (>60)
[2016-07-27 06:26] LABS: PLATELET ESTIMATE NORMAL (NORMAL)
[2016-07-28 03:43] LABS: BASOPHIL% 0.3 % (0-2.5); EOSINOPHIL# 0.4 X10e3 (0-0.7); EOSINOPHIL% 2.5 % (0.0-7.0); HEMATOCRIT 30.3 % (35.0-45.0); HEMOGLOBIN 9.8 gm/dL (12.0-16.0); LYMPHOCYTE# 1.2 X10e3 (1.0-3.5); LYMPHOCYTE% 7.6 % (17.0-45.0); MEAN CELL VOLUME 87.6 FL (83-96); MEAN CORPUSCULAR HEMOGLOBIN 28.2 PG (28-34); MEAN CORPUSCULAR HGB CONC 32.2 g/dL (30-36); MEAN PLATELET VOLUME 7.5 FL (6.5-11.5); MONOCYTE# 0.8 X10e3 (0-1.0); MONOCYTE% 4.7 % (3.0-12.0); NEUTROPHIL# 13.5 X10e3 (1.5-7.1); NEUTROPHIL% 84.9 % (40-75); PLATELET COUNT 165 X10e3 (140-420); RED BLOOD COUNT 3.46 X10e (3.90-5.30); RED CELL DISTRIBUTION WIDTH 13.3 % (11.0-15.5); WHITE BLOOD COUNT 15.9 X10e3 (4.0-10.5)
[2016-07-28 03:45] LABS: DIFF IND NO
[2016-07-28 04:12] LABS: BUN/CREATININE RATIO 19.09; CALCIUM SERUM 8.1 mg/dL (8.4-10.2); CREATININE SERUM 1.1 mg/dL (0.6-1.4); GLOM FILT RATE Estimated 55.3 mL/min (>60); POTASSIUM 3.9 mmol/L (3.5-5.1)
[2016-07-28 10:09] LABS: INR 1.4; PROTHROMBIN TIME (PATIENT) 14.8 SECONDS (9.6-11.5)
[2016-07-29 05:08] LABS: HEMOGLOBIN 8.4 gm/dL (12.0-16.0); MEAN CELL VOLUME 87.1 FL (83-96); MEAN CORPUSCULAR HEMOGLOBIN 28.2 PG (28-34); MEAN CORPUSCULAR HGB CONC 32.4 g/dL (30-36); MEAN PLATELET VOLUME 8.1 FL (6.5-11.5); RED BLOOD COUNT 2.98 X10e (3.90-5.30); RED CELL DISTRIBUTION WIDTH 13.3 % (11.0-15.5); WHITE BLOOD COUNT 12.7 X10e3 (4.0-10.5)
[2016-07-29 05:26] LABS: INR 1.1; PROTHROMBIN TIME (PATIENT) 12.1 SECONDS (9.6-11.5)
[2016-07-29 06:46] LABS: BUN/CREATININE RATIO 16.25; CALCIUM SERUM 8.1 mg/dL (8.4-10.2); CREATININE SERUM 0.8 mg/dL (0.6-1.4); GLOM FILT RATE Estimated 81.3 mL/min (>60); POTASSIUM 4.2 mmol/L (3.5-5.1)
[2016-07-30 04:06] LABS: HEMATOCRIT 26.2 % (35.0-45.0); HEMOGLOBIN 8.4 gm/dL (12.0-16.0); MEAN CELL VOLUME 87.2 FL (83-96); MEAN CORPUSCULAR HEMOGLOBIN 28.1 PG (28-34); MEAN CORPUSCULAR HGB CONC 32.2 g/dL (30-36); MEAN PLATELET VOLUME 7.8 FL (6.5-11.5); RED CELL DISTRIBUTION WIDTH 13.3 % (11.0-15.5); WHITE BLOOD COUNT 11.7 X10e3 (4.0-10.5)
[2016-07-30 04:16] LABS: INR 1.2; PROTHROMBIN TIME (PATIENT) 12.7 SECONDS (9.6-11.5)
[2016-07-30 04:38] LABS: BUN/CREATININE RATIO 14.28; CALCIUM SERUM 8.2 mg/dL (8.4-10.2); CREATININE SERUM 0.7 mg/dL (0.6-1.4); GLOM FILT RATE Estimated 95.5 mL/min (>60); POTASSIUM 3.7 mmol/L (3.5-5.1)
== END 2016-07-30 20:00 | DRG 486 ==
LOC: CED 19:27 → CEDOF 23:20 → C4C 07-27 07:50
PROVIDERS: Emergency Medicine; Family Medicine; Orthopaedic Surgery; Physician Assistant
PROC: 0SPC09Z Removal of Liner from Right Knee Joint, Open Approach (ICD-10-PCS; principal; 2016-07-26)
PROC: 0SUV09Z Supplement Right Knee Joint, Tibial Surface with Liner, Open Approach (ICD-10-PCS; 2016-07-26)
DX: T84.53XA Infection and inflammatory reaction due to internal right knee prosthesis, initial encounter (principal); N39.0 Urinary tract infection, site not specified; J38.01 Paralysis of vocal cords and larynx, unilateral; K59.00 Constipation, unspecified; Z98.84 Bariatric surgery status; Z90.49 Acquired absence of other specified parts of digestive tract; Z90.710 Acquired absence of both cervix and uterus; E66.01 Morbid (severe) obesity due to excess calories; F17.290 Nicotine dependence, other tobacco product, uncomplicated; Z68.36 Body mass index [BMI] 36.0-36.9, adult; Z85.820 Personal history of malignant melanoma of skin; Z88.1 Allergy status to other antibiotic agents; Z91.040 Latex allergy status; Z91.048 Other nonmedicinal substance allergy status; F32.9 Major depressive disorder, single episode, unspecified; N32.81 Overactive bladder; R06.02 Shortness of breath; R53.1 Weakness; R50.9 Fever, unspecified
CPT/HCPCS: 36415; 71010; 76937; 77001; 80048; 80202; 81003; 82553; 82947; 83605; 84484; 85025; 85027; 85610; 85652; 86140; 86850; 86900; 86901; 87040; 87070; 87075; 87077; 87086; 87186; 87205; 87804; 93970; 93971; 96361; 96374; 97110; 97116; 97162; 97530; 99285; C1751; C1776; G8978-GP; G8979-GP; J0690; J0692; J0696; J1170; J1642; J1650; J1885; J2250; J2270; J3010; J3370